=== PATIENT | female | born 1940 | race Hispanic/Latino ===

== ENCOUNTER 2020-03-06 15:02 | Inpatient (IN) | payer MEDICARE ==
[~2020-03-06] VITALS: Ht 154.9 cm; Wt 54.2 kg
[2020-03-06 16:01] LABS: BASOPHILS % (AUTO) 0.3 % (0.0-5.0); EOSINOPHILS % (AUTO) 0.3 % (0.0-8.0); HEMATOCRIT 33.8 % (36-48); LYMPHOCYTES % (AUTO) 7.1 % (21.0-51.0); MEAN CORPUSCULAR HEMOGLOBIN 31.4 pg (27.0-33.0); MEAN CORPUSCULAR HGB CONC 33.7 g/dL (32.0-36.0); MEAN CORPUSCULAR VOLUME 93.1 fL (79-99); MONOCYTES % (AUTO) 3.2 % (3.0-13.0); NEUTROPHILS % (AUTO) 88.6 % (40.0-77.0); PLATELET COUNT (AUTO) 193 K/uL (130-400); RED BLOOD CELL COUNT(AUTO) 3.63 MIL/uL (4.00-5.50); RED CELL DISTRIBUTION WIDTH 15.1 % (11.0-15.5)
[2020-03-06] MEDS ORDERED: ACETAMINOPHEN EXTRA STRENGTH 500 MG TABLET ONE (16:02)
[2020-03-06 16:34] LABS: CREATININE 4.4 mg/dL (0.5-1.5); POTASSIUM 4.3 mmol/L (3.5-5.1)
[2020-03-06 16:45] LABS: ALBUMIN 3.2 g/dL (3.5-5.0); BILIRUBIN,TOTAL 0.3 mg/dL (0.2-1.0); TOTAL PROTEIN, SERUM 7.7 g/dL (6.0-8.3)
[2020-03-06 19:58] LABS: ABG BASE EXCESS 3.3 mmol/L (-2.0-3.0); ABG HCO3 26.1 mmol/L (21.0-28.0); ABG OXYGEN SATURATION 97.4 % (95.0-99.0); ABG PCO2 34 mmHg (32-45)
[2020-03-06] MEDS ORDERED: CEFTRIAXONE SODIUM 1 GM ONE (20:08)
[2020-03-06] MEDS ORDERED: AZITHROMYCIN 500MG+NS 250ML 250 ML IV ONE (20:16)
[2020-03-06 20:19] LABS: CRP QUANTITATIVE 142.2 mg/L (0.00-9.0)
[2020-03-06] MEDS ORDERED: GLUCAGON 1MG KIT 1 MG ML IM PRN (23:00)
[2020-03-06] MEDS ORDERED: ONDANSETRON HCL 4 MG/2 ML VIAL IV PRN (23:00)
[2020-03-06] MEDS ORDERED: ERGOCALCIFEROL (VITAMIN D2) 50,000 UNIT CAPSULE PO ONE (23:00)
[2020-03-06] MEDS ORDERED: DEXTROSE 50%-WATER 50 ML DISP.SYRIN IV PRN (23:00)
[2020-03-06] MEDS ORDERED: DIPHENHYDRAMINE HCL 25 MG CAPSULE PO PRN (23:00)
[2020-03-06] MEDS ORDERED: ALBUTEROL INHALER 90MCG/INH IH PRN (23:00)
[2020-03-06] MEDS ORDERED: ACETAMINOPHEN 325 MG TAB PO PRN (23:00)
[2020-03-06] MEDS ORDERED: NITROGLYCERIN 0.4 MG SL TAB SL PRN (23:00)
[2020-03-06 23:21] LABS: INR 0.89 (0.85-1.15); PARTIAL THROMBOPLASTIN TIME 35.9 SEC (26.3-35.5); PROTHROMBIN TIME 9.7 SEC (9.6-11.6)
[2020-03-06 23:23] LABS: MAGNESIUM 2.1 mg/dL (1.80-2.40); PHOSPHORUS 2.1 mg/dL (2.5-4.9)
[2020-03-06 23:24] LABS: HEMOGLOBIN A1C 7.4 % (4.0-6.0)
[2020-03-07] MEDS: INSULIN HUMULIN R 100 UNIT/ML 3ML SQ SCH (05:21)
[2020-03-07] MEDS ORDERED: ACETAMINOPHEN 325 MG TAB ONE ×3 (06:15→22:07)
[2020-03-07] MEDS: ACETAMINOPHEN 325 MG TAB PO PRN (06:16)
[2020-03-07 06:30] LABS: BASOPHILS % (AUTO) 0.3 % (0.0-5.0); HEMATOCRIT 30.5 % (36-48); LYMPHOCYTES % (AUTO) 17.4 % (21.0-51.0); MEAN CORPUSCULAR HEMOGLOBIN 31.3 pg (27.0-33.0); MEAN CORPUSCULAR HGB CONC 33.1 g/dL (32.0-36.0); MEAN CORPUSCULAR VOLUME 94.4 fL (79-99); MONOCYTES % (AUTO) 4.2 % (3.0-13.0); NEUTROPHILS % (AUTO) 77.3 % (40.0-77.0); PLATELET COUNT (AUTO) 212 K/uL (130-400); RED BLOOD CELL COUNT(AUTO) 3.23 MIL/uL (4.00-5.50); RED CELL DISTRIBUTION WIDTH 15.2 % (11.0-15.5); WHITE BLOOD COUNT (AUTO) 5.9 K/uL (4.8-10.8)
[2020-03-07 07:12] LABS: ALBUMIN 2.9 g/dL (3.5-5.0); BILIRUBIN,TOTAL 0.3 mg/dL (0.2-1.0); CREATININE 5.9 mg/dL (0.5-1.5); CRP QUANTITATIVE 141.2 mg/L (0.00-9.0); MAGNESIUM 2.1 mg/dL (1.80-2.40); PHOSPHORUS 3.4 mg/dL (2.5-4.9); POTASSIUM 4.7 mmol/L (3.5-5.1); TOTAL PROTEIN, SERUM 6.2 g/dL (6.0-8.3)
[2020-03-07] MEDS ORDERED: ASCORBIC ACID 500 MG TAB ONE (09:00)
[2020-03-07] MEDS ORDERED: FAMOTIDINE 20MG TAB 20 MG TAB ONE (09:00)
[2020-03-07] MEDS ORDERED: ZINC SULFATE 220 CAPSULE ONE (09:01)
[2020-03-07] MEDS ORDERED: HEPARIN SODIUM 5000UNIT/ML 1ML VIAL ONE ×2 (09:01→21:28)
[2020-03-07 17:02] LABS: APPEARANCE,URINE CLEAR (CLEAR); BILIRUBIN,URINE SMALL (NEGATIVE); COLOR,URINE YELLOW (YELLOW); GLUCOSE, URINE (UA) NEGATIVE (NEGATIVE); KETONES,URINE 5 mg/dL (NEGATIVE); LEUKOCYTE ESTERASE ,URINE NEGATIVE (NEGATIVE); NITRATE,URINE NEGATIVE (NEGATIVE); OCCULT BLOOD,URINE NEGATIVE (NEGATIVE); PROTEIN,URINE 100 mg/dL (NEGATIVE); UROBILINOGEN,URINE 0.2 mg/dL (0.2-1.0)
[2020-03-07 17:12] LABS: BACTERIA,URINE Few /HPF (None Seen); RBC,URINE 0-1 /HPF (0-1); SQUAMOUS EPITHELIAL CELL,UR Rare /HPF (0-2); WBC,URINE 0-1 /HPF (0-1)
--- NOTE | 2020-03-07 17:40 | NUR ---
INITIAL SW spoke with patient's daughter, Nazia Small, [phone]. Patient lives with spouse. No home health but does have PHC with [facility] X 25.5 hours a week. Patient has standard walker, 4 wheel walker, cane, BPM, glucometer (uses insulin). Patient needs help with ADL's and doesn't drive. Family assists with transportation. PCP is Dr. Jamir Gilbert. Pharmacy is [facility] located on [address] in [place]. DCP is home. Addendum: 03/07/20 at 1747 by DIANE SCHREIBER SS Amended: Links added.
[2020-03-07] MEDS ORDERED: BENZONATATE 100 MG CAPSULE PO PRN (18:15)
[2020-03-07 20:00] VITALS: BP 131/94
--- NOTE | 2020-03-07 20:00 | NUR ---
Received pt with temp 100.9, reported by previous shift was just medicated with Tylenol earlier, application of cold compress initiated. Routine assessment done, plan of care discuss, made aware next dialysis as ordered by Dr. Jara for Monday as she is pending CT Angio for PE protocol tomorrow then followed with dialysis by Monday. Home medication obtained & entered.
[2020-03-07] MEDS ORDERED: AZITHROMYCIN 500MG+NS 250ML 250 ML IV SCH (21:00)
[2020-03-07] MEDS ORDERED: CEFTRIAXONE SODIUM 1 GM IV SCH (21:00)
--- NOTE | 2020-03-07 21:01 | NUR ---
Received a call from pt's daughter Nazia Small # [phone] stated she will be the spoke person on this case, created password "[email or web address]", updated with pt's status, all concern questions addressed, made aware next dialysis will be on Monday.
[2020-03-07] MEDS ORDERED: AZITHROMYCIN 500MG+NS 250ML 250 ML IV ONE (21:29)
[2020-03-07] MEDS ORDERED: CEFTRIAXONE SODIUM 1 GM ONE (21:29)
[2020-03-08] VITALS: BP 144/48
[2020-03-08] MEDS ORDERED: SUCR500T PO (00:40)
[2020-03-08] MEDS ORDERED: AMLO10TA7 PO ×2 (00:40)
[2020-03-08] MEDS ORDERED: METO-409 PO (00:40)
[2020-03-08] MEDS ORDERED: HYDR100T27 PO (00:40)
[2020-03-08] MEDS ORDERED: PANT40TA25 PO (00:40)
[2020-03-08] MEDS ORDERED: FOLI0.8T2 PO (00:40)
[2020-03-08 04:00] VITALS: BP 114/44
[2020-03-08 05:05] LABS: BASOPHILS % (AUTO) 0.2 % (0.0-5.0); HEMATOCRIT 28.5 % (36-48); LYMPHOCYTES % (AUTO) 15.1 % (21.0-51.0); MEAN CORPUSCULAR HEMOGLOBIN 30.9 pg (27.0-33.0); MEAN CORPUSCULAR HGB CONC 32.6 g/dL (32.0-36.0); MEAN CORPUSCULAR VOLUME 94.7 fL (79-99); MONOCYTES % (AUTO) 2.5 % (3.0-13.0); NEUTROPHILS % (AUTO) 81.2 % (40.0-77.0); PLATELET COUNT (AUTO) 248 K/uL (130-400); RED BLOOD CELL COUNT(AUTO) 3.01 MIL/uL (4.00-5.50); RED CELL DISTRIBUTION WIDTH 15.5 % (11.0-15.5); WHITE BLOOD COUNT (AUTO) 8.1 K/uL (4.8-10.8)
[2020-03-08 06:21] LABS: ALBUMIN 2.6 g/dL (3.5-5.0); BILIRUBIN,TOTAL 0.4 mg/dL (0.2-1.0); POTASSIUM 4.8 mmol/L (3.5-5.1); TOTAL PROTEIN, SERUM 6.7 g/dL (6.0-8.3)
[2020-03-08 06:34] LABS: CREATININE 8.1 mg/dL (0.5-1.5)
[2020-03-08 07:49] LABS: CRP QUANTITATIVE 191.9 mg/L (0.00-9.0)
[2020-03-08] MEDS ORDERED: IOHEXOL 350 MG/ML 100ML INFUS..BTL IV ONE (08:44)
[2020-03-08] MEDS ORDERED: ASCORBIC ACID 500 MG TAB ONE (09:55)
[2020-03-08] MEDS ORDERED: FAMOTIDINE 20MG TAB 20 MG TAB ONE (09:56)
[2020-03-08] MEDS ORDERED: HEPARIN SODIUM 5000UNIT/ML 1ML VIAL ONE ×2 (09:56→22:58)
[2020-03-08] MEDS ORDERED: ZINC SULFATE 220 CAPSULE ONE (09:57)
[2020-03-08] MEDS ORDERED: ACETAMINOPHEN 325 MG TAB ONE (10:16)
[2020-03-08] MEDS ORDERED: ONDANSETRON HCL 4 MG/2 ML VIAL ONE (11:11)
[2020-03-08] MEDS ORDERED: KETOROLAC TROMETHAMINE 30MG/ML ONE (11:12)
[2020-03-08] MEDS ORDERED: METOCLOPRAMIDE 5 MG TABLET PO SCH (16:30)
[2020-03-08] MEDS ORDERED: CEFTRIAXONE SODIUM 1 GM ONE (22:59)
[2020-03-08] MEDS ORDERED: AZITHROMYCIN 500MG+NS 250ML 250 ML IV ONE (22:59)
[2020-03-08] MEDS ORDERED: SODIUM CHLORIDE 0.9% 1000ML 1,000 ML IV SCH (23:56)
[2020-03-09] MEDS ORDERED: RENAL DOSE IV SCH
[2020-03-09] MEDS: LINEZOLID 600 MG/ISO-OSM 300 ML IV SCH
[2020-03-09] MEDS ORDERED: MEROPENEM 500 MG VIAL ONE (03:49)
[2020-03-09 07:41] LABS: BASOPHILS % (AUTO) 0.1 % (0.0-5.0); HEMATOCRIT 26.7 % (36-48); LYMPHOCYTES % (AUTO) 7.4 % (21.0-51.0); MEAN CORPUSCULAR HEMOGLOBIN 30.7 pg (27.0-33.0); MEAN CORPUSCULAR HGB CONC 30.7 g/dL (32.0-36.0); MONOCYTES % (AUTO) 2.5 % (3.0-13.0); NEUTROPHILS % (AUTO) 88.5 % (40.0-77.0); PLATELET COUNT (AUTO) 270 K/uL (130-400); RED BLOOD CELL COUNT(AUTO) 2.67 MIL/uL (4.00-5.50); RED CELL DISTRIBUTION WIDTH 16.6 % (11.0-15.5); WHITE BLOOD COUNT (AUTO) 8.3 K/uL (4.8-10.8)
[2020-03-09 08:45] LABS: ALBUMIN 2.2 g/dL (3.5-5.0); BILIRUBIN,TOTAL 0.3 mg/dL (0.2-1.0); CRP QUANTITATIVE 260.6 mg/L (0.00-9.0); POTASSIUM 4.5 mmol/L (3.5-5.1)
[2020-03-09] MEDS ORDERED: ACETAMINOPHEN 325 MG TAB ONE (08:48)
[2020-03-09 08:50] LABS: CREATININE 8.9 mg/dL (0.5-1.5)
[2020-03-09] MEDS ORDERED: ASCORBIC ACID 500 MG TAB ONE (08:53)
[2020-03-09] MEDS ORDERED: HYDROCORTISONE SOD SUCCINATE 100 MG/2 ML VIAL ONE ×3 (08:55→21:58)
[2020-03-09] MEDS ORDERED: FAMOTIDINE 20MG TAB 20 MG TAB ONE (08:55)
[2020-03-09] MEDS ORDERED: ZINC SULFATE 220 CAPSULE ONE (08:56)
[2020-03-09] MEDS ORDERED: HEPARIN SODIUM 5000UNIT/ML 1ML VIAL ONE (08:56)
[2020-03-09] MEDS: FAMOTIDINE 20MG TAB 20 MG TAB PO SCH (09:00)
[2020-03-09] MEDS: ASCORBIC ACID 500 MG TAB PO SCH (09:00)
[2020-03-09] MEDS: ZINC SULFATE 220 CAPSULE PO SCH (09:00)
[2020-03-09] MEDS: HEPARIN SODIUM 5000UNIT/ML 1ML VIAL SQ SCH (21:00)
[2020-03-09] MEDS: HYDROCORTISONE SOD SUCCINATE 100 MG/2 ML VIAL IV SCH (21:00)
[2020-03-09] MEDS: INSULIN HUMULIN R 100 UNIT/ML 3ML SQ SCH (21:00)
[2020-03-10] MEDS: ACETAMINOPHEN 325 MG TAB PO PRN (01:58)
[2020-03-10] MEDS ORDERED: MEROPENEM 500 MG VIAL ONE (03:51)
[2020-03-10 04:31] VITALS: BP 145/63
--- NOTE | 2020-03-10 04:37 | NUR ---
ER ARRIVAL Arrived fro ER with a medina catheter,pt aao x 3,denies pain or sob.
[2020-03-10] MEDS: MEROPENEM 500 MG VIAL IVP SCH ×2 (04:47)
[2020-03-10 04:58] LABS: BASOPHILS % (AUTO) 0.1 % (0.0-5.0); HEMATOCRIT 29.8 % (36-48); LYMPHOCYTES % (AUTO) 10.7 % (21.0-51.0); MEAN CORPUSCULAR HEMOGLOBIN 30.7 pg (27.0-33.0); MEAN CORPUSCULAR HGB CONC 32.9 g/dL (32.0-36.0); MEAN CORPUSCULAR VOLUME 93.4 fL (79-99); MONOCYTES % (AUTO) 1.3 % (3.0-13.0); PLATELET COUNT (AUTO) 346 K/uL (130-400); RED BLOOD CELL COUNT(AUTO) 3.19 MIL/uL (4.00-5.50); RED CELL DISTRIBUTION WIDTH 15.6 % (11.0-15.5); WHITE BLOOD COUNT (AUTO) 6.8 K/uL (4.8-10.8)
[2020-03-10 05:17] LABS: CREATININE 6.9 mg/dL (0.5-1.5); POTASSIUM 4.2 mmol/L (3.5-5.1)
[2020-03-10] MEDS: INSULIN HUMULIN R 100 UNIT/ML 3ML SQ SCH ×2 (06:28→14:27)
[2020-03-10 08:38] VITALS: BP 136/60
[2020-03-10] MEDS: FAMOTIDINE 20MG TAB 20 MG TAB PO SCH (09:21)
[2020-03-10] MEDS: HYDROCORTISONE SOD SUCCINATE 100 MG/2 ML VIAL IV SCH ×2 (09:21→14:28)
[2020-03-10] MEDS: ZINC SULFATE 220 CAPSULE PO SCH (09:22)
[2020-03-10] MEDS: ASCORBIC ACID 500 MG TAB PO SCH (09:22)
[2020-03-10] MEDS: HEPARIN SODIUM 5000UNIT/ML 1ML VIAL SQ SCH (09:28)
[2020-03-10 11:31] VITALS: BP 141/58
[2020-03-10] MEDS: LINEZOLID 600 MG/ISO-OSM 300 ML IV SCH ×2 (12:00)
[2020-03-10] MEDS ORDERED: APIX2.5T PO (12:23)
--- NOTE | 2020-03-10 16:30 | NUR ---
PT D/C HOME USING DISCHARGE TECNIQUE RE; S/S TO WATCH FOR AND WHEN TO CALL MD OR 911. Kassandra royce con watts doctor de cabezera en 3 a 5 renteria. Llamare para hace watts royce. Kassandra royce con watts pulmonologo in 1 semana. Llame al floridalma [phone] para hacer watts royce. Siga con abelardo citas de dialisis ambrose antes. Recibira sherry llamada hoy o manana para confirmar royce para watts dialisis. Possiblemente el [place] tendra dialisis. No umair mas de 1.5 litros de agua para prevenir falta de aire o de accomulacion de liquidos en los pulmones or en watts cuerpo. Porfavor de aislarse de los demas en watts casa para prevenir contaminar los demas familiares. COVID 19: Positivo. Laura a watts doctor de cabesera para que la de, de jeannette de cuarentena. Si le da falta de aire, fiebre de 101.0 llamar a watts doctor probablemente esta reinfectada con un viros or bacteria. No mas antibioticos. SE LE JET UN ANTICOAGULANTE PARA PREVENIR COAGULOS EN LA VENAS. IV OUT INTACT, NO BLEEDING. AAOX3, AWARE OF PLAN OF CARE DAUGHTER AWARE OF PLAN. STATES WILL F.U WITH CONSULTS AND PCP.
== END 2020-03-10 17:00 | disposition home or self-care (01) | DRG 177 ==
LOC: EDBD 15:02 → EDH 15:02 → EDHIP 22:21 → 3AH 03-10 02:09
PROVIDERS: ADMIT Internal Medicine; ATTEND Internal Medicine
PROC: 5A1D70Z Performance of Urinary Filtration, Intermittent, Less than 6 Hours Per Day (ICD-10-PCS; principal; 2020-03-09)
DX: U07.1 COVID-19 (principal); J12.89 Other viral pneumonia; J96.01 Acute respiratory failure with hypoxia; N18.6 End stage renal disease; I12.0 Hypertensive chronic kidney disease with stage 5 chronic kidney disease or end stage renal disease; N17.9 Acute kidney failure, unspecified; E11.22 Type 2 diabetes mellitus with diabetic chronic kidney disease; D64.9 Anemia, unspecified; Z99.2 Dependence on renal dialysis; Z85.118 Personal history of other malignant neoplasm of bronchus and lung; Z83.3 Family history of diabetes mellitus; Z90.49 Acquired absence of other specified parts of digestive tract
CPT/HCPCS: 36415; 36600; 71045; 71275; 74176; 76770; 80048; 80053; 81001; 82550; 82728; 82803; 82948; 83036; 83605; 83615; 83735; 84100; 84145; 84484; 84702; 85025; 85378; 85610; 85730; 86140; 87040; 87077; 87186; 87486; 87581; 87633; 87798; 90935; 93005; G0378; J0456; J0696; J1644; J1720; J1815; J1885; J2020; J2185; J2405; Q9967; U0003

== ENCOUNTER → 2020-06-08 | Outpatient (CLI) | payer MEDICARE ==
[~2020-06-08] MED LIST: AMLO-258 PO; APIX2.5T PO; FOLI0.8T2 PO; HYDR100T27 PO; METO-409 PO; PANT40TA54 PO; SUCR500T PO
== END | disposition home or self-care (01) ==
LOC: SHCH 12:53
PROVIDERS: ATTEND Internal Medicine Cardiovascular Disease
DX: R06.09 Other forms of dyspnea (principal); R07.9 Chest pain, unspecified
CPT/HCPCS: 93306; 93356

== ENCOUNTER → 2020-07-03 | Outpatient (CLI) | payer MEDICARE ==
[~2020-07-03] MED LIST changes: +REGADENOSON 0.4 MG/5 ML PF SYG IVP SCH
== END | disposition home or self-care (01) ==
LOC: SHCH 07:42
PROVIDERS: ATTEND Internal Medicine Cardiovascular Disease
DX: R07.9 Chest pain, unspecified (principal); R06.09 Other forms of dyspnea
CPT/HCPCS: 78452; 93017; 96374; A9500 ×2; J2785